=== PATIENT | male | born 1995 | race Caucasian/White ===

== ENCOUNTER 2021-12-19 17:18 | Emergency (ER) | payer MEDICAID, OTHER ==
[~2021-12-19] VITALS: Ht 188 cm; Wt 79.6 kg
[2021-12-19] MEDS ORDERED: SULF1TAB23 PO (18:08)
[2021-12-19 18:15] VITALS: BP 141/66
== END 2021-12-19 18:28 | disposition home or self-care (01) ==
LOC: M ED 17:18
DX: L03.114 Cellulitis of left upper limb (principal); J45.909 Unspecified asthma, uncomplicated; F17.210 Nicotine dependence, cigarettes, uncomplicated

== ENCOUNTER → 2022-05-09 | Outpatient (REF) | payer MEDICAID ==
[~2022-05-09] MED LIST: SULF1TAB23 PO
[2022-05-09 15:33] LABS: GC DNA AMPLIFICATION NEGATIVE (NEGATIVE)
== END ==
LOC: M LAB REF 12:19
PROVIDERS: ATTEND Family Medicine
DX: F11.20 Opioid dependence, uncomplicated (principal)